=== PATIENT | female | born 1995 | race Caucasian/White ===

== ENCOUNTER 2025-05-11 14:32 | Emergency (ER) | payer BC, SELFPAY ==
[2025-05-11 14:36] VITALS: BP 146/109
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
[2025-05-11 17:36] VITALS: BMI 24.0
[2025-05-11 17:37] VITALS: BP 139/92
[2025-05-11 17:44] LABS: Hematocrit 39.3 % (37.0-47.0); Hemoglobin 13.6 g/dL (12.0-16.0); Mean Corp Hgb Conc. 34.6 g/dL (33.0-37.0); Mean Corpuscular Volume 83.8 fL (81.0-99.0); Nucleated Red Blood Cells % 0 %; Platelet Count 306 10^3/uL (130-400); Red Cell Dist. Width 12.8 % (11.5-14.5)
[2025-05-11 17:58] LABS: HCG, Serum Qualitative Screen Negative
[2025-05-11 18:00] VITALS: BP 126/89
[2025-05-11 18:04] LABS: ALT (SGPT) 15 U/L (0-35); AST (SGOT) 17 U/L (14-36); Albumin 4.8 g/dl (3.5-5.0); Alkaline Phosphatase 48 U/L (38-126); Blood Urea Nitrogen 10 mg/dl (7-17); Calcium 9.8 mg/dl (8.4-10.2); Carbon Dioxide 23 mmol/L (22-30); Chloride 107 mmol/L (98-107); Estimated Creatinine Clearance 101 ml/min; Glucose 89 mg/dl (70-99); Potassium 3.6 mmol/L (3.5-5.1); Sodium 137 mmol/L (135-145); Total Protein 7.7 g/dl (6.3-8.2); eGFR > 60.00
[2025-05-11] MEDS: NSS 1000 IV (18:29)
[2025-05-11 18:30] VITALS: BP 126/89
[2025-05-11 20:18] VITALS: BP 132/85
== END 2025-05-11 20:32 | disposition home or self-care (01) ==
LOC: EMR 14:32
PROVIDERS: EMERGENCY PHYSICIAN Emergency Medicine; FAMILY PHYSICIAN Student in an Organized Health Care Education/Training Program
DX: R42 Dizziness and giddiness (principal); F17.200 Nicotine dependence, unspecified, uncomplicated; H93.12 Tinnitus, left ear
CPT/HCPCS: 96360; 99284; 70496; 70498; 80053; 84703; 85025; 93005; Q9967